=== PATIENT | female | born 1960 | race Caucasian/White ===

== ENCOUNTER 2024-05-08 10:10 | Emergency (ER) | payer BC, SELFPAY ==
[2024-05-08 10:13] VITALS: BP 123/68; PULSE 93; RESP 15; TEMP 39.1; O2SAT 97; BMI 22.1
[2024-05-08 10:19] VITALS: BP 123/68; PULSE 99; O2SAT 96
[2024-05-08] MEDS: ACETAMINOPHEN 1,000MG/100ML VIAL 1000 MG IV (10:38)
[2024-05-08] MEDS: LACTATED RINGERS 1000ML 1,000 ML 999 ML IV (10:38)
[2024-05-08] MEDS: ONDANSETRON 4MG/2ML VIAL 4 MG IV (10:38)
--- NOTE | 2024-05-08 10:45 | XR_ITS ---
FINAL REPORT CLINICAL HISTORY: soa, history of lung CA and effusions FINDINGS: No acute pulmonary opacity is present. There is no evidence of effusion or pneumothorax. Mediastinum is unremarkable. Heart size is normal. IMPRESSION: No acute abnormality. Reviewed, Interpreted and Dictated by Rj Mayen MD Transcribed by Almita Harmon Authenticated and [facility]
--- NOTE | 2024-05-08 10:50 | ED_ITS ---
Discharge Plan Disposition Patient Disposition: Home, Self-Care Prescriptions Prescriptions: New bdidcygilseqhxl-woxcteyfm-PL [Bromfed DM] 2-30-10 mg/5 mL syrup 5 ml PO Q6H PRN (Reason: cold symptoms) Qty: 118 0RF ondansetron 4 mg tablet,disintegrating 4 mg PO Q6H PRN (Reason: nausea and vomiting) Qty: 10 0RF Referrals Follow up/Referrals: Chery Angulo [employer] CLAIMS EXAMINER [Primary Care Provider] - See instructions Activity Restrictions/Add. Instructions Additional Instructions/Restrictions: Call your family doctor to establish care for this visit to the emergency department and schedule follow-up within 48 hours to ensure improvement. If you have any worsening of your condition or any other concerning signs or symptoms, return to the emergency department or your primary care doctor for further evaluation. Bromfed and Zofran as needed. Be sure to keep track of your blood pressure make sure is not going up too high. Take Tylenol 1000 mg every 6 hours (4 times daily) and ibuprofen 400 mg every 6 hours (4 times daily) as needed with food and water to prevent GI upset and kidney damage. To help with nasal drainage, also take Zyrtec or Claritin each night before bed. Clinical Impressions Clinical Impression: COVID-19, Vomiting, Diarrhea Discharge ED Provider: Marlon Hickey General Adult HPI General Chief complaint: Upper Respiratory Infection Stated complaint: cough, fever, drainage, vomiting, covid+ Time Seen by Provider: 05/08/24 10:17 Mode of Arrival: Ambulatory Source of Information: Patient and Spouse Limitations: No Limitations Description of Symptoms (Recalled from ER Triage Doc. by RN): spouse reports pt was diagnosed with covid + on saturday. pt reports that she has been having nausea and vomitting since then. History of Present Illness HPI narrative: Please note that above description of symptoms, in this electronic medical record under categorization of recalled from ER triage doctor by RN are reflective of an initial nursing assessment, however, is not reflective of my full history and physical exam that was personally taken and clarified. Consequentially, this preceding description of symptoms, which may include the patient's categorized chief complaint in the EMR, do not reflect my personal clinical impression, and the ultimate description of history of present illness and patient stated complaints should be deferred to this section of the note. Unless stated otherwise or congruent with this section of the note, additional signs, symptoms, or incongruence should be interpreted as inaccurate with my clinical impression. Related Data Previous Rx's Medication Instructions Recorded zbkitiqzeescdjy-yhxpvymbpkbspnu-LG 5 ml PO Q6H PRN cold symptoms #118 05/08/24 2 mg-30 mg-10 mg/5 mL oral syrup mL (Bromfed DM) ondansetron 4 mg disintegrating 4 mg PO Q6H PRN nausea and 05/08/24 tablet vomiting #10 tabs Allergies Allergy/AdvReac Type Severity Reaction Status Date / Time No Known Allergies Allergy Verified 05/08/24 10:31 [facility] Disclaimer: The information contained in this section may have been updated after the patient was seen, as this information can be updated by other users. Social History Smoking Status: Never smoker alcohol intake: never current occupational status: employed Travel in the last 8 weeks: Outside the [facility] ROS Obtained: Yes All systems reviewed & no additional complaints except as documented Physical Exam General General appearance: alert and in no apparent distress (Appears uncomfortable) Head Head exam: atraumatic and normocephalic Eye Eye exam: Present normal appearance, PERRL and EOMI ENT ENT exam: Present mucous membranes dry Neck Neck exam: Present normal inspection, full ROM and trachea midline Respiratory Respiratory exam: Present normal lung sounds bilaterally; Absent respiratory distress, wheezes, stridor, accessory muscle use or prolonged expiratory phase Cardiovascular Cardiovascular exam: Present normal rhythm and tachycardia Abdominal Exam Abdominal exam: Present soft; Absent distention, tenderness, guarding, rebound or rigidity Extremities Exam Extremities exam: Absent edema Neurological Exam Neurological exam: Present alert, oriented X3, CN II-XII intact and normal gait; Absent motor sensory deficit Skin Skin exam: Present warm and dry; Absent diaphoresis or erythema Medical Decision Making Medical Records Medical records reviewed: Yes I reviewed the patient's medical records. Leopoldo Inquiry Pt receiving controlled substance: No Leopoldo was queried for this patient: No Vital Signs: 05/08/24 10:13 05/08/24 10:19 05/08/24 11:26 Temperature 102.3 F H Temperature Source Oral Pulse Rate 99 H 91 H Pulse Rate [Left Radial] 93 H Respiratory Rate 15 Blood Pressure 123/68 102/70 L Blood Pressure [Right Arm] 123/68 Blood Pressure Mean [Right Arm] 86 02 Sat by Pulse Oximetry 97 96 96 Oxygen Delivery Method Room Air Room Air Room Air 05/08/24 11:30 05/08/24 12:00 Temperature Temperature Source Pulse Rate 90 88 Pulse Rate [Left Radial] Respiratory Rate Blood Pressure 112/71 91/57 L Blood Pressure [Right Arm] Blood Pressure Mean [Right Arm] 02 Sat by Pulse Oximetry 92 L 94 L Oxygen Delivery Method Room Air Lab Data Lab Results 05/08/24 10:30: Sodium 143, Potassium 3.4 L, Chloride 101, Carbon Dioxide 27, A nion Gap 18.4 H, BUN 41 H, Creatinine 1.50 H, Estimated Creat Clear 37, E stimated GFR 35 L, Est GFR ( Amer) 43 L, Glucose 114 H, Calcium 9.3, Lipase 101 05/08/24 10:30 Orders (Tests/Meds): ED MEDICATIONS Discontinued Medications Generic Name Dose Route Start Last Admin Trade Name Freq PRN Reason Stop Dose Admin Acetaminophen 1,000 mg 05/08/24 10:32 05/08/24 10:38 Acetaminophen 1,000mg/100ml Vial IV 05/08/24 10:33 1,000 mg ONCE ONE Administration Dexamethasone Sodium Phosphate 10 mg 05/08/24 10:49 05/08/24 11:26 Dexamethasone 4mg/Ml 1ml Vial IV 05/08/24 10:50 10 mg ONCE ONE Administration Lactated Ringer's 1,000 mls @ 999 mls/hr 05/08/24 10:32 05/08/24 10:38 Lactated Ringer's 1000 Ml Bag IV 05/08/24 11:32 999 mls/hr .Q1H1M ONE Administration Ibuprofen 800 mg 05/08/24 10:33 05/08/24 11:26 Ibuprofen 800 Mg Tablet PO 05/08/24 10:34 800 mg ONCE ONE Administration Ondansetron HCl 4 mg 05/08/24 10:32 05/08/24 10:38 Ondansetron 4mg/2ml Vial IV 05/08/24 10:33 4 mg ONCE ONE Administration ORDERS Category Date Time Status CXR --portable [XR chest portable] Stat Exams 05/08/24 10:45 Taken BMP [Basic Metabolic Panel] Stat Lab 05/08/24 10:30 Completed Lipase Stat Lab 05/08/24 10:30 Completed Medical Decision Narrative: 63-year-old female history of hypertension presenting with COVID-positive symptoms. Patient has never had COVID in the past. Has not received COVID vaccination. Was recently on a trip in [place]. She developed symptoms including vomiting, diarrhea, dry cough, fevers or chills, general malaise and myalgias. Tolerating some p.o. intake. Has tried Tylenol, ibuprofen, no other meds. Came in for further evaluation. History was obtained via conversation with patient and . On arrival, patient hemodynamically stable, alert, oriented x4, appropriate, GCS 15, moving all extremities spontaneously, pupils equal and reactive to light. Full physical exam performed and significant for uncomfortable appearing woman who is in no acute distress. Mildly tachycardic, but normotensive. Febrile 102.3 ?F. Nontachypneic, saturating appropriately on room air. Lungs are clear to auscultation bilaterally, no evidence of wheezes or focal breath sounds. Differential includes URI, bronchitis, pneumonia, acute viral syndrome, viral myalgias, sepsis, ARDS, among others. Patient was given Decadron, Tylenol, Motrin, fluids, Zofran for symptomatic management and correction of underlying abnormalities. Workup independently interpreted and significant for Mild hypokalemia 3.4, DINORA, elevated anion gap, this is likely secondary to dehydration due to GI losses. Chest x-ray with no acute consolidation airspace disease. See radiology read for full review of final results. On reevaluation, patient feeling much better, nausea improved and able to tolerate p.o. Given patient presentation, workup, history, this most likely represents COVID-positive viremia and acute viral syndrome. Because patient at baseline without signs or symptoms of clinical decompensation, deemed appropriate for discharge. Results were relayed to patient who voiced understanding and were agreeable to outpatient management and follow up. I discussed my clinical impression with patient and answered all questions. At this time, the evidence for any other entities in the differential is insufficient to warrant any further testing or ED observation. This was explained as well. Advisory was given that persistent or worsening symptoms require further evaluation. I confirmed the understanding of this discussion. Traveling Auditor disclaimer Much of this encounter note is an electronic back filler operator spoken language to printed text. Electronic back filler operator of the spoken language may permit errors. Although I have reviewed the note, some errors may still exist. Critical Care Critical Care Time Critical Care Time: No
[2024-05-08 11:00] LABS: Anion Gap 18.4 mEq/L (5-15); Blood Urea Nitrogen 41 mg/dl (7-17); Calcium 9.3 mg/dl (8.4-10.2); Carbon Dioxide 27 mmol/L (22.0-30.0); Chloride 101 mmol/L (98-107); Creatinine Clearance Estimated 37 mL/min (50-200); Estimated Glomerular Filt Rate 35 ml/min (>60); GFR (African American) 43 ML/MIN (>60); Glucose 114 mg/dl (74-100); Lipase 101 U/L (23-300); Potassium 3.4 mmoL/L (3.5-5.1); Sodium 143 mmol/L (136-145)
[2024-05-08 11:26] VITALS: BP 102/70; PULSE 91; O2SAT 96
[2024-05-08] MEDS: IBUPROFEN 800 MG TABLET PO (11:26)
[2024-05-08] MEDS: DEXAMETHASONE 4MG/ML 1ML VIAL 10 MG IV (11:26)
[2024-05-08 11:30] VITALS: BP 112/71; PULSE 90; O2SAT 92
[2024-05-08 12:00] VITALS: BP 91/57; PULSE 88; O2SAT 94
[2024-05-08 12:55] VITALS: BP 102/53; PULSE 80; RESP 18; TEMP 37.1; O2SAT 95
== END 2024-05-08 12:55 | disposition home or self-care (01) ==
PROVIDERS: Emergency Provider Emergency Medicine; PCP Nurse Practitioner
DX: U07.1 COVID-19 (principal); R11.2 Nausea with vomiting, unspecified; R19.7 Diarrhea, unspecified; R05.9 Cough, unspecified; R50.9 Fever, unspecified
CPT/HCPCS: 71045; 80048; 83690; 96361; 96374; 96375; 99284; J0131; J1100; J2405; J7120